=== PATIENT | male | born 1950 | race Caucasian/White ===

== ENCOUNTER 2016-06-24 19:48 | Emergency (ER) | payer BC, MEDICARE ==
[2016-06-24 15:04] LABS: BASOPHILS 0.2 %; BASOPHILS ABSOLUTE 0.01 10/3/uL (0.0-0.16); EOSINOPHILS ABSOLUTE 0.11 10/3/uL (0.0-0.53); ER CBC TAT 0 Hrs 09 Mins; HEMOGLOBIN 14.3 g/dL (13.6-17.8); IMMATURE GRANULOCYTES 0.2 %; IMMATURE GRANULOCYTES ABSOLUTE 0.01 10/3/uL (0.0-0.11); LYMPHOCYTES 6.6 %; LYMPHOCYTES ABSOLUTE 0.36 10/3/uL (0.67-4.30); MEAN CORPUS HGB CONC 35.6 g/dL (32.0-36.0); MEAN CORPUSCULAR HEMOGLOB 30.7 pg (26.0-34.0); MEAN CORPUSCULAR VOLUME 86.3 fL (80-100); MEAN PLATELET VOLUME 9.9 fL (9.2-13.0); MONOCYTES 7.8 %; MONOCYTES ABSOLUTE 0.43 10/3/uL (0.21-1.20); NEUTROPHILS 83.2 %; NEUTROPHILS ABSOLUTE 4.56 10/3/uL (2.02-8.40); PLATELET COUNT 154 10/3/uL (150-400); RBC DISTRIBUTION WIDTH 13.3 % (12.0-16.0); RED CELL COUNT 4.66 10/6/uL (4.7-6.1); WHITE BLOOD CELLS 5.5 10/3/uL (4.5-10.5)
[2016-06-24 15:07] LABS: HEMATOCRIT 40.2 % (40.0-51.0); MANUAL DIFF NO %
[2016-06-24 15:11] LABS: INTERNATIONAL NORMAL RATI 1.2 UNITS (-); PARTIAL THROMBO TIME 27.7 SEC (22.5-37.2); PROTIME (NOT ORD) 14.6 SEC (12.0-14.5)
[2016-06-24 15:19] LABS: BUN (BLOOD UREA NITROGEN) 17 MG/DL (6-23); CALCIUM, SERUM 8.6 MG/DL (8.5-10.4); CHEST PAIN PROFILE TAT 0 Hrs 24 Mins; CHLORIDE, SERUM 105 MMOL/L (96-112); CO2 (CARBON DIOXIDE) 29 MMOL/L (24-34); CREATININE 1.03 MG/DL (0.70-1.30); GFR AFRICAN AMERICAN 87 ML/MIN (>=60); GFR NON AFRICAN AMERICAN 75 ML/MIN (>=60); GLUCOSE, SERUM 106 MG/DL (60-99); POTASSIUM, SERUM 3.4 MMOL/L (3.5-5.3); SODIUM, SERUM 143 MMOL/L (135-148); TROPONIN I <0.02 NG/ML (<0.05)
[2016-06-24 17:20] LABS: INFLUENZA A SCREEN NEGATIVE (NEGATIVE); INFLUENZA B SCREEN NEGATIVE (NEGATIVE)
[~2016-06-24 19:48] MED LIST: ACET500CAP PO; ANOROELLIPTA INH; APRES25 PO; ASA5GR PO; ASAB PO; AVODART PO; BEN25 PO; CELEXA40 MG PO; COMBIVENT RESPIM4 GM INH; CRESTOR20 MG PO; CRESTOR40 MG PO; DUONEB INH; FISH-EPA1000 MG PO; FLOMAX4 PO; FOLIC PO; GLUCCHONDR PO; GLUCPH PO; HCTZ25B PO; HYDROCHLOROT12.5 MG PO; HYDROCHLOROT25 MG PO; IMDUR30 PO; KLOR-CON M2020 MEQ PO; L20 PO; LOP25 PO; LOP50 PO; MICRO-K10 MEQ PO; MOBIC15 MG PO; MULTI VITAMIN; MULTIPLE VIT PO; NITROQUICK0.4 MG SL; NITROSTAT0.4 MG SL; NORV5 PO; PLAVIX PO; POTASSIUM; PRAVACHOL40 MG PO; PRIN20 PO; PROZ10 PO; PROZAC PO; RANEXA1000 MG PO; SARAFEM20 M1 PO; VOLT75 PO; ZESTRIL30 MG PO
== END 2016-06-24 20:30 | disposition home or self-care (01) ==
LOC: ER 19:48
PROVIDERS: Emergency Medicine; Nurse Practitioner Family
DX: B34.9 Viral infection, unspecified (principal); Z77.22 Contact with and (suspected) exposure to environmental tobacco smoke (acute) (chronic); J44.9 Chronic obstructive pulmonary disease, unspecified; I25.2 Old myocardial infarction; I10 Essential (primary) hypertension; I25.10 Atherosclerotic heart disease of native coronary artery without angina pectoris; F32.9 Major depressive disorder, single episode, unspecified; Z95.5 Presence of coronary angioplasty implant and graft; Z95.1 Presence of aortocoronary bypass graft; Z87.891 Personal history of nicotine dependence
CPT/HCPCS: 71020; 80048; 83735; 84484; 85025; 85610; 85730; 87804; 93005; 99285; A9270-GY